=== PATIENT | male | born 1955 | race African-American/Black ===

== ENCOUNTER 2018-08-07 16:35 | Inpatient (IN) ==
[2018-08-07] MEDS ORDERED: LABETALOL IV ONE (17:00)
--- NOTE | 2018-08-07 17:26 | Diag Imaging Result Doc PS360 ---
EXAM: CHEST-PORTABLE 08/07/2018 HISTORY: htn TECHNIQUE: AP portable at 1718 COMMENT: There are no previous studies. There is no evidence of acute pulmonary disease. The heart size is at the upper limits of normal. IMPRESSION: Borderline cardiomegaly. Electronically signed by Markus Olivares 08/07/2018 5:23 PM
[2018-08-07 17:29] LABS: BASO# 0.05 X1000 (0.0-0.2); BASO% 0.6 % (0.0-0.8); EOS# 0.16 X1000 (0.0-0.7); EOS% 1.8 % (0.0-10.0); HEMATOCRIT 40.8 % (42.0-52.0); HEMOGLOBIN 13.7 g/dL (14.0-18.0); IMM GRAN# 0.01 X1000 (0.0-0.04); IMM GRAN% 0.1 % (0.0-0.5); LYMPH# 2.67 X1000 (1.2-3.4); LYMPH% 30.3 % (20.5-51.1); MCH 27.6 PG (27-31); MCHC 33.6 g/dL (33-37); MCV 82.1 FL (81-99); MONO# 0.62 X1000 (0.11-0.59); MPV 9.8 FL (7.4-10.4); NEUT# 5.29 X1000 (1.4-6.5); NEUT% 60.2 % (42.2-75.2); PLT 334 X1000 (130-400); RBC 4.97 XMIL (4.7-6.1); RDW 13.8 % (11.5-14.5)
[2018-08-07 17:45] LABS: INR 0.89; PROTIME 12.5 Seconds (11.0-16.0)
[2018-08-07 17:46] LABS: PTT 35.6 Seconds (22.3-41.8)
[2018-08-07 17:56] LABS: AGAP 13; ALBUMIN 3.7 g/dL (3.5-5.0); ALKALINE PHOSPHATASE 86 U/L (32-122); BUN 17 mg/dL (8-22); CALCIUM 9.4 mg/dL (8.8-10.2); CHLORIDE 102 mmol/L (98-107); COSMO 279; ESTIMATED GFR > 60; GLUCOSE 101 mg/dL (70-104); GOT 26 U/L (10-34); GPT 30 U/L (10-44); POTASSIUM 4.7 mmol/L (3.5-5.1); SODIUM 139 mmol/L (136-145); TCO2 25 mmol/L (25-35); TOTAL PROTEIN 7.4 g/dL (6.3-8.3)
[2018-08-07 18:02] LABS: CK PROFILE 415 U/L (24-204)
[2018-08-07] MEDS ORDERED: APRESOLINE IV ONE (18:15)
--- NOTE | 2018-08-07 18:16 | EKG Report ---
Test Performed on : 08/07/2018 5:43:19 PM Test Reason : htn Blood Pressure : / mmHG Vent. Rate : 073 BPM Atrial Rate : 073 BPM P-R Int : 190 ms QRS Dur : 102 ms QT Int : 422 ms P-R-T Axes : 012 -36 120 degrees QTc Int : 464 ms Normal sinus rhythm. Possible Left atrial enlargement Left axis deviation Left ventricular hypertrophy with repolarization abnormality Abnormal ECG No previous ECGs available Unconfirmed Result
[2018-08-07 18:18] LABS: CK INDEX 4.1 (0.0-2.5); CK-MB 17.06 ng/mL (0.0-5.0)
[2018-08-07] MEDS ORDERED: ASPIRIN PO ONE (18:23)
[2018-08-07] MEDS ORDERED: NITROGLYCERIN TOP ONE (18:27)
[2018-08-07] MEDS ORDERED: VASOTEC IV ONE (19:52)
[2018-08-07] MEDS ORDERED: ZOFRAN IV PRN (21:04)
[2018-08-07] MEDS ORDERED: TYLENOL PO PRN (21:04)
[2018-08-07 21:30] LABS: CK INDEX 4.2 (0.0-2.5); CK-MB 13.61 ng/mL (0.0-5.0)
[2018-08-07] MEDS: LABETALOL IV PRN (22:00)
[2018-08-07 23:53] LABS: CK INDEX 4.2 (0.0-2.5); CK-MB 13.23 ng/mL (0.0-5.0)
--- NOTE | 2018-08-07 23:56 | PROVIDER DOCUMENTATION ---
This chart was entered by Fadumo Sultana Scribe, acting as scribe for Rick Gibbs PA. HPI-General Adult - General Chief Complaint: B/P Problems Stated Complaint: ELEVATED BP Time Seen by Provider: 08/07/18 16:44 Source: patient Allergies/Adverse Reactions: Patient Allergies Allergy/AdvReac Type Severity Reaction Status Date / Time No Known Allergies Allergy Verified 08/12/17 17:14 Home Medications: Home Medication List Medication Instructions Recorded Confirmed Last Taken Type NK [No Home Medications] 08/12/17 08/12/17 Unknown History - History of Present Illness -Gen Adult Nature of Presenting Problems: 63 y/o male presents to ED with HTN. Pt reports he was sent to ED from physical therapy. Pt states he has had trouble maintaining his blood pressure for a long time. Pt reports associated lower extremity edema. Pt is alert and oriented. Location of Pain/Injury: reports: none Pain Radiation: reports: no radiation Quality of Pain: reports: none Severity: reports: mild Onset/Duration: reports: unsure Timing: reports: still present Context/Activities at Onset: reports: none Modifying Factors: improves with: nothing Associated Symptoms: reports: other (HTN, blurry vision, lower extremity edema) Similar Symptoms Previously?: Yes Recently seen or treated by another doctor?: No Review of Systems - Adult - REVIEW OF SYSTEMS - ADULT Constitutional: reports: other (HTN). denies: chills, fever Eyes: reports: blurred vision. denies: discharge Ears, Nose, Mouth & Throat: reports: no symptoms reported Cardiovascular: denies: chest pain, palpitations Respiratory: denies: cough, shortness of breath Gastrointestinal: denies: abdominal pain, diarrhea, nausea, vomiting Genitourinary: reports: no symptoms reported Musculoskeletal: reports: other (lower extremity edema). denies: back pain, joint pain Integumentary: reports: no symptoms reported Neurological: denies: dizziness/vertigo, seizure Psychiatric: reports: no symptoms reported Endocrine: reports: no symptoms reported Hematologic/Lymphatic: reports: no symptoms reported Allergic/Immunologic: reports: no symptoms reported All Other Systems: Reviewed and Negative Past History - Adult - PAST MEDICAL HISTORY-ADULT Review of Records: reports: Old Records Reviewed, Nursing Assessment Review, Medications Reviewed Major Childhood Illnesses: reports: denies history Cardiovascular: reports: HTN Respiratory: reports: denies history Gastrointestinal: reports: denies history Genitourinary: reports: denies history Musculoskeletal: reports: denies history Neurological: reports: denies history Psychiatric: reports: denies history Endocrine/Immune: reports: Diabetes - PRIOR SURGERIES/PROCEDURES Surgical/Procedure History: reports: none - IMMUNIZATION STATUS Childhood Immunizations: See Nurse Assessment Flu Vaccine: See Nurse Assessment - FAMILY HISTORY Family History: reviewed, not pertinent - SOCIAL HISTORY Smoking: quit greater than 1 year Substance Use: none/never Alcohol Use Frequency: never Living Situation: family Physical Exam-General - PHYSICAL EXAM-ADULT Initial Vital Signs Reviewed: Yes - CONSTITUTIONAL General Appearance: appears well, alert, no apparent distress - EYES Eyes: PERRL/EOMI, pink conjunctivae - HEAD, EARS, NOSE, MOUTH & THROAT HENMT: normocephalic/atraumatic, moist mucous membranes, normal ENT inspection - NECK Neck: non-tender, full range of motion - RESPIRATORY Respiratory: chest non-tender, lungs clear, normal breath sounds - CARDIOVASCULAR Cardiovascular: normal peripheral pulses, regular rate, rhythm - GASTROINTESTINAL (ABDOMEN) Abdominal Exam: normal bowel sounds, non tender, soft - MUSCULOSKELETAL Back Exam: normal inspection, no CVA tenderness Extremity: normal range of motion, non-tender, normal gait - SKIN Integumentary: normal color, warm/dry - NEUROLOGIC Neurologic: grossly normal - PSYCHIATRIC Psych/Mental Status: normal mood/affect, normal thought content, normal thought process Progress - PLAN OF CARE/RESULTS Progress/Plan/Lab Results: Vital Signs - 8 hr 08/07/18 16:40 Temperature 98.9 F Pulse Rate 78 Respiratory Rate 18 Blood Pressure 226/130 O2 Sat by Pulse Oximetry 95 Orders Category Date Time Status Cardiac Monitoring DIRECTED Care 08/07/18 16:45 Active Saline Loc NOW Care 08/07/18 16:45 Active CHEST-PORTABLE [RAD] Stat Exams 08/07/18 16:45 Ordered CBC WITH ELECTRONIC DIFF [HEME] Stat Lab 08/07/18 16:45 Uncollected CK PROFILE [SP CHEM] Stat Lab 08/07/18 16:45 Uncollected COMPREHENSIVE METABOLIC PANEL [CHEM] Stat Lab 08/07/18 16:45 Uncollected PRO B-NATRIURETIC PEPTIDE Stat Lab 08/07/18 16:45 Uncollected PROTIME WITH INR [COAG] Stat Lab 08/07/18 16:45 Uncollected PTT [COAG] Stat Lab 08/07/18 16:45 Uncollected TROPONIN T Stat Lab 08/07/18 16:45 Uncollected Labetalol Med 08/07/18 17:00 Once 20 mg IV NOW ONE CP/SOB/Palp >45 yrs of Age Stat Oth 08/07/18 16:45 Ordered EKG [EKG] Stat Ther 08/07/18 16:45 Ordered Laboratory Tests 08/07/18 08/07/18 08/07/18 17:10 17:10 17:10 WBC 8.80 RBC 4.97 Hgb 13.7 L Hct 40.8 L MCV 82.1 MCH 27.6 MCHC 33.6 RDW Std Deviation 13.8 Plt Count 334 MPV 9.8 Immature Gran % (Auto) 0.1 Neut % (Auto) 60.2 Lymph % (Auto) 30.3 Hale % (Auto) 7.0 Eos % (Auto) 1.8 Baso % (Auto) 0.6 Immature Gran # (Auto) 0.01 Neut # (Auto) 5.29 Lymph # (Auto) 2.67 Hale # (Auto) 0.62 H Eos # (Auto) 0.16 Baso # (Auto) 0.05 PT 12.5 INR 0.89 PTT (Actin FS) 35.6 Sodium 139 Potassium 4.7 Chloride 102 Carbon Dioxide 25 Anion Gap 13 BUN 17 Creatinine 1.0 Estimated GFR/1.73 m2 > 60 BUN/Creatinine Ratio 17 Glucose 101 Calculated Osmolality 279 Calcium 9.4 Total Bilirubin 0.20 AST 26 ALT 30 Alkaline Phosphatase 86 Troponin T Total Protein 7.4 Albumin 3.7 Globulin 4.0 Albumin/Globulin Ratio 1.0 08/07/18 17:10 WBC RBC Hgb Hct MCV MCH MCHC RDW Std Deviation Plt Count MPV Immature Gran % (Auto) Neut % (Auto) Lymph % (Auto) Hale % (Auto) Eos % (Auto) Baso % (Auto) Immature Gran # (Auto) Neut # (Auto) Lymph # (Auto) Hale # (Auto) Eos # (Auto) Baso # (Auto) PT INR PTT (Actin FS) Sodium Potassium Chloride Carbon Dioxide Anion Gap BUN Creatinine Estimated GFR/1.73 m2 BUN/Creatinine Ratio Glucose Calculated Osmolality Calcium Total Bilirubin AST ALT Alkaline Phosphatase Troponin T 0.131 H Total Protein Albumin Globulin Albumin/Globulin Ratio 2030: 4 attempts to reach cardiology over last two hours have been unsuccessful. Patient was seen and examined by Dr. Hernandez. 2100: Will admit here as ICU hold. Will transfer to DG when ICU bed opens. Result Diagrams: 08/07/18 17:10 08/07/18 17:10 - REASSESSMENT Reassessment #1 Time Reassessed: 19:00 Status: unchanged (no cp) Reassessment #2 Time Reassessed: 20:30 Status: unchanged (Feeling well. No cp.) - EKG 1 Time of EKG reading by physician:: 17:54 EKG Read and Signed by:: Corey Hernandez EKG Interpretation (*Must complete 3 of following elements*): Abnormal Rate: 73 Rhythm: nsr [place]: left QRS: LVH MO Interval: normal ST Wave: non-specific ST changes Prior EKG Comparison: no prior EKG 2 Time of EKG reading by physician:: 20:41 EKG Read and Signed by:: Eduar Guaman EKG Interpretation (*Must complete 3 of following elements*): Abnormal Rate: 75 Rhythm: nsr [place]: left QRS: Q Waves present MO Interval: normal ST Wave: non-specific ST changes Prior EKG Comparison: unchanged from prior - XRAY 1 XRAY Study: Chest Impression: Abnormal (COMMENT: There are no previous studies. There is no evidence of acute pulmonary disease. The heart size is at the upper limits of normal. IMPRESSION: Borderline cardiomegaly. Electronically signed by Markus Olivares 08/07/2018 5:23 PM) - CONSULTS/PCP/HOSPITALIST Notification #1 *Consult/PCP/Hospitalist*: Dr. Suero Time Discussed: 18:31 Consult Disposition: other (call cards) #2 Consult: Dr. Apodaca Time Discussed: 20:39 Consult Disposition: Admit (admit to DG. Esmolol gtt if needed.) #3 Consult: Hospitalist DG Time Discussed: 20:57 Consult Disposition: Admit (No beds in ICU. Hold here. Call hospitalist here. 2103: Dr. Shabazz on the phone. Will hold here in ICU. Labetolol 10 iv push q 30.) Departure - Departure Date of Disposition Decision: 08/07/18 Time of Disposition Decision: 21:04 DIAGNOSIS: Hypertensive emergency, NSTEMI (non-ST elevated myocardial infarction) Disposition: ADMITTED INPATIENT 09 Certified Medical Emergency: Emergent Condition: Fair Referrals and Follow-Ups: Karolyn Rod [Primary Care Provider] - - Critical Care Note This patient required my direct & personal management of CC.: Yes Total Time (mins): 55 Critical Care Statement: This patient required my direct personal management to treat or rule out processes, the absence of which, could potentiallly result in sudden, clinically significant life or limb threatening deterioration. Attestation - Physician/ DONTAE Attestation Patient care was provided by Advanced Practice Provider:: Yes Advanced Practice Provider:: Rick Gibbs Advanced Practice Provider documentation review:: The Mid-level provider documentation, treatment plan and medical decision making was reviewed by the physician who agrees with all treatment and medical decision making by the MLP. The physician spent face to face time with patient:: Yes Advanced Practice Provider documentation review:: Supervising physician onsite and consulted in the evaluation and care of this patient. The physician did have a face to face encounter with the patient. This chart was documented by the indicated scribe, (Fadumo Sultana Scribe) and accurately reflects the services I performed and decisions made by me, Rick Gibbs, PA, as attested by the provider's signature.
[2018-08-08 07:44] LABS: CK INDEX 4.1 (0.0-2.5); CK-MB 8.92 ng/mL (0.0-5.0)
[2018-08-08] MEDS: NITROGLYCERIN TOP SCH ×3 (07:54→18:28)
[2018-08-08] MEDS ORDERED: LOPRESSOR PO SCH ×2 (09:00→21:00)
[2018-08-08 09:25] LABS: HEMATOCRIT 36.6 % (42.0-52.0); HEMOGLOBIN 12.5 g/dL (14.0-18.0); MCHC 34.2 g/dL (33-37); MCV 82.1 FL (81-99); MPV 9.2 FL (7.4-10.4); RBC 4.46 XMIL (4.7-6.1); RDW 13.8 % (11.5-14.5); WBC 8.27 X1000 (4.8-10.8)
[2018-08-08 09:42] LABS: AGAP 10; ALBUMIN 3.2 g/dL (3.5-5.0); ALKALINE PHOSPHATASE 72 U/L (32-122); BUN 18 mg/dL (8-22); CALCIUM 8.9 mg/dL (8.8-10.2); CHLORIDE 101 mmol/L (98-107); COSMO 274; ESTIMATED GFR > 60; GLUCOSE 134 mg/dL (70-104); GOT 18 U/L (10-34); GPT 25 U/L (10-44); POTASSIUM 4.5 mmol/L (3.5-5.1); SODIUM 135 mmol/L (136-145); TCO2 24 mmol/L (25-35); TOTAL PROTEIN 6.7 g/dL (6.3-8.3)
[2018-08-08 10:00] LABS: UR AMPHETAMINES QUAL NONE DETECTED (NONE DETECT); UR BARBITUATES QUAL NONE DETECTED (NONE DETECT); UR BENZODIAZEPIN QUAL NONE DETECTED (NONE DETECT); UR CANNABINOIDS QUAL NONE DETECTED (NONE DETECT); UR COCAINE QUAL NONE DETECTED (NONE DETECT); UR METHADONE QUAL NONE DETECTED (NONE DETECT); UR METHAMPHETAMINE QUAL NONE DETECTED (NONE DETECT); UR OPIATES QUAL NONE DETECTED (NONE DETECT); UR OXYCODONE QUAL NONE DETECTED (NONE DETECT); UR PCP QUAL NONE DETECTED (NONE DETECT); UR PROPOXYPHENE QUAL NONE DETECTED (NONE DETECT); UR TCA QUAL NONE DETECTED (NONE DETECT)
[2018-08-08] MEDS ORDERED: ASPIRIN PO SCH (10:00)
[2018-08-08] MEDS ORDERED: LOVENOX SUBQ SCH (10:00)
[2018-08-08] MEDS ORDERED: PRINIVIL PO SCH (10:00)
[2018-08-08] MEDS ORDERED: ASPIRIN ONE (10:05)
[2018-08-08] MEDS ORDERED: PRINIVIL ONE (10:05)
--- NOTE | 2018-08-08 10:55 | HISTORY AND PHYSICAL ---
PRIMARY CARE PHYSICIAN: Karolyn Ware. CHIEF COMPLAINT: Elevated blood pressure. Sent after he had an elevated blood pressure at Physical therapy yesterday. HISTORY OF PRESENTING ILLNESS: This is a 63-year-old, male, who presents to [facility] ER after he had been at his physical therapy appointment outpatient and they took his blood pressure and said it was extremely elevated so he was sent to the emergency room for evaluation and treatment. When he arrived, his blood pressure was 226/130. He stated that he did not have any symptoms. Denied any blurred vision, dizziness, any chest pain, shortness of breath. Stated he was feeling fine. His laboratory data showed a creatinine kinase of 415, CK-MB of 17.06 with a troponin of 0.131. We continued to trend those and they stayed positive with the last one showing a troponin of 0.097. His EKG showed a non-STEMI. So, he will be transferred to the [facility] for further evaluation and treatment with cardiology consultation. PAST MEDICAL HISTORY: Hypertension. PAST SURGICAL HISTORY: None. FAMILY HISTORY: Heart disease. SOCIAL HISTORY: Currently lives with his family. Denies any tobacco, alcohol or illicit drug use. ALLERGIES: He has no known drug allergies. HOME MEDICATIONS: We will need to obtain a current list and restart those as appropriate. I will place an order for nursing to update and confirm, but he does state that he takes metoprolol and lisinopril, but does not know the dosages at this time. LABORATORY DATA: Showed a white blood cell count of 8.80, hemoglobin 13.7, hematocrit 40.8, platelets 334. PT and INR of 12.5 and 0.89. Sodium of 139, potassium 4.7, chloride 102, CO2 of 25, BUN of 17, creatinine 1, glucose 101. Initial cardiac enzymes showed a creatinine kinase of 415. CK-MB of 17.06 with a troponin of 0.131. His repeats have trended down slightly, but are all still positive at this time. Chest x-ray showed borderline cardiomegaly. EKG showed normal sinus rhythm at 73 with a non-STEMI. REVIEW OF SYSTEMS: He denies fever, chills, blurred vision, dizziness. Denies chest pain, coughing, shortness of breath. Denies abdominal pain, constipation, diarrhea, burning or hurting with urination. PHYSICAL EXAMINATION: VITAL SIGNS: On arrival, he had a temperature of 98.9, pulse 78, respirations 18, blood pressure was 226/130. Saturating 95% on room air. He had multiple drug interventions for his blood pressure. In the emergency room, currently blood pressure is 167/96. GENERAL: This is a 63-year-old, male, who is sitting up in the bed and answers questions appropriately. Continues to deny any blurred vision, dizziness, chest pain, headache. At this time states, "I'm feeling fine this morning." HEENT: Normocephalic, atraumatic. Normal ENT inspection. Oropharynx and nares are clear. Eyes: Pupils are equal, round, reactive to light and accommodation. Extraocular movements are intact. NECK: Normal inspection. Normal range of motion. LUNGS: Clear to auscultation bilaterally with equal lung expansion and chest wall movement. HEART: With regular rate and rhythm. No murmurs, rubs, or gallops. ABDOMEN: Soft, nontender, nondistended. Bowel sounds are present x4 quadrants. MUSCULOSKELETAL: He has 5/5 strength x4 extremities. NEUROLOGICAL: The cranial nerves 2-12 appear grossly intact. ASSESSMENT: 1. Non ST-elevation myocardial infarction. 2. Accelerated hypertension, uncontrolled. 3. Morbid obesity with BMI of 39.9 kg/M sq. PLAN: He will be transferred to the [facility]. We will place him on telemetry, healthy heart diet. We will consult Cardiology. He is on labetalol 10 mg IV q.1 hour p.r.n. for blood pressure greater than 180/90. Do not give if heart rate less than 70. He has nitroglycerin 1 inch topically q.6. Metoprolol 25 mg p.o. b.i.d., Zofran 4 mg IV q.4 p.r.n. We will recheck a CMP, magnesium level this morning. Urine drug screen is pending and will also check a TSH. Dictated by CYDNEY Medina for Bryan Shabazz MD cc: CYDNEY Medina MD [facility]
--- NOTE | 2018-08-08 13:17 | HISTORY AND PHYSICAL ---
ADDENDUM: Patient seen and examined by myself. Full note dictated and discussed with nurse practitioner. Patient states he was sent to the emergency department while he was at physical therapy. He has been having pain in his arms and legs due to spinal stenosis, notes they go numb at times. He has been undergoing physical therapy. Upon arrival to physical therapy they checked his blood pressure and noted his blood pressure was markedly elevated. Therefore, they sent him to the ER where blood pressures were certainly high. He was given IV labetalol. His enzymes were actually elevated as well. He denies any chest pain or palpitations. States he has never had a stress test or a heart catheterization in the past. He states currently he is still not having any chest pains or palpitations. PLAN: We will admit him to the hospital to rule out NM and will follow. We will consult Cardiology, place him on beta-kai, add his home MYKEL inhibitor back, place him on Lovenox. Further orders as needed. cc: Bryan Shabazz MD
[2018-08-08] MEDS ORDERED: LABETALOL ONE (13:39)
[2018-08-08] MEDS: LABETALOL IV PRN ×4 (13:44→22:05)
[2018-08-08] MEDS ORDERED: TYLENOL PO PRN (14:19)
[2018-08-08] MEDS ORDERED: ZOFRAN IV PRN (14:19)
--- NOTE | 2018-08-08 19:06 | EKG Report ---
Test Performed on : 08/07/2018 8:40:41 PM Test Reason : ER Blood Pressure : / mmHG Vent. Rate : 075 BPM Atrial Rate : 075 BPM P-R Int : 192 ms QRS Dur : 116 ms QT Int : 416 ms P-R-T Axes : 041 -31 116 degrees QTc Int : 464 ms Normal sinus rhythm. Left axis deviation Left ventricular hypertrophy with QRS widening and repolarization abnormality Abnormal ECG When compared with ECG of 07-AUG-2018 17:43, (Unconfirmed) No significant change was found Unconfirmed Result
[2018-08-08] MEDS: PRINIVIL PO SCH (20:26)
[2018-08-08] MEDS: LOVENOX SUBQ SCH (22:08)
--- NOTE | 2018-08-08 23:23 | CONSULTATION ---
DATE OF CONSULTATION: 08/08/2018 IMPRESSION: 1. Hypertensive urgency. 2. Nonspecific mild elevation in troponin. I suspect this is more related to the hypertensive urgency. Values are not consistent with non-ST elevation myocardial infarction at this point. 3. Longstanding severe hypertension. 4. Obesity. RECOMMENDATIONS: 1. Agree with plan to utilize intravenous labetalol to control blood pressure acutely. 2. Continue beta-kai but favor switching to carvedilol. 3. Continue lisinopril. 4. Consider addition of calcium channel antagonist if needed. 5. Echocardiography. 6. Once the patient's blood pressure controlled will consider screening for coronary disease. HISTORY: This 63-year-old -[place] male with past history of longstanding hypertension was admitted for further management of hypertensive urgency and very mild elevation in troponin. He has had somewhat difficult to control blood pressure last 5 years but has had hypertension for more than 20 years. He has been having some elevated blood pressure of late and saw his primary care provider a month ago. Blood pressure was elevated and some adjustments were made to his antihypertensive regimen. Listed medications is still not available. He has some degenerative disease of his back and spine and presented to physical therapy. His blood pressure was noted to be severely elevated and he was referred to the emergency room for further evaluation and treatment. He has not had any chest discomfort, dizziness, lightheadedness nor shortness of breath. He relates he has been feeling fine. His blood pressure was significantly elevated in the emergency room. He also had a very mild elevation in troponin 0.131. He was subsequent treated acutely with intravenous labetalol times several doses as well as topical nitrates. His blood pressure has come down but has most recently trended back upwards. He continues asymptomatic from a cardiovascular standpoint. There is no history of chest pain. He is unaware of any history of coronary disease. PAST MEDICAL HISTORY: 1. Longstanding hypertension. 2. Obesity. PAST SURGICAL HISTORY: None. ALLERGIES: Has no known drug allergies. MEDICATIONS: Current list of medications. SOCIAL HISTORY: He lives with family. He does not smoke or use alcohol. Reports compliance with sodium restriction. FAMILY HISTORY: Positive for hypertension. REVIEW OF SYSTEMS: Pulmonary: Negative. Gastrointestinal: Negative. Constitutional: Negative. Remainder review of systems negative/noncontributory with 14 total systems reviewed. PHYSICAL EXAMINATION: This is a obese, older middle-aged -[place] male in no distress.Vital signs: Blood pressure 220/90, heart rate 79, oxygen saturation 96% on room air. HEENT: Extraocular movements intact. Mucous membranes moist. Neck: Supple without jugular venous distention. There are no carotid bruits. Chest: Clear to auscultation. Cardiac Exam: Reveals a regular rate and rhythm without appreciable murmur or gallop. Abdomen: Soft, nontender. No abdominal bruits. Extremities: Without edema. Neurologic: Reveals him to be alert and fully oriented. Speech is fluent. He moves all 4 extremities equally well. Skin: Warm, dry. Psychiatric: Reveals mood to be appropriate. DATA: A 12 lead EKG demonstrates normal sinus rhythm, left axis deviation and left ventricular hypertrophy with QRS widening and repolarization abnormality. LABORATORY DATA: Includes a white blood cell count 8.27, hematocrit 36.6, hemoglobin 12.5, platelet count 308,000, sodium 135, potassium 4.5, chloride 101, carbon dioxide 24, BUN 18, creatinine 1.0. Glucose 134, magnesium 2.0, AST 18, ALT 25. CPK initially 312, followup CPK 215, CPK/MB initially 13.23, followup CPK/MB 8.92, CPK/MB index 4.2, followup CPK/MB index 4.1, initial troponin T 0.113, followup troponin T 0.091 and 0.097 respectively. Chest x-ray demonstrates cardiomegaly with left ventricular prominence but no acute infiltrates. cc: Carlos Grewal MD
[2018-08-08] MEDS: CARDENE 20 MG/NS 20 MG/200 ML PIGGYBACK IV SCH (23:53)
[2018-08-09] MEDS: COREG PO SCH ×3 (00:29→21:10)
[2018-08-09] MEDS: NITROGLYCERIN TOP SCH ×3 (00:29→13:15)
[2018-08-09] MEDS: CARDENE 20 MG/NS 20 MG/200 ML PIGGYBACK IV SCH ×3 (03:16→11:43)
[2018-08-09 05:48] LABS: HEMOGLOBIN A1C 5.9 % (4.8-6.0)
[2018-08-09 05:53] LABS: AGAP 12; ALB/GLOB RATIO 0.9; ALKALINE PHOSPHATASE 64 U/L (32-122); BUN 16 mg/dL (8-22); CALCIUM 8.6 mg/dL (8.8-10.2); CHLORIDE 100 mmol/L (98-107); COSMO 272; CREATININE 0.9 mg/dL (0.7-1.2); ESTIMATED GFR > 60; GLUCOSE 144 mg/dL (70-104); GOT 19 U/L (10-34); GPT 21 U/L (10-44); POTASSIUM 4.4 mmol/L (3.5-5.1); SODIUM 134 mmol/L (136-145); TCO2 22 mmol/L (25-35); TOTAL BILIRUBIN 0.41 mg/dL (0.20-1.00); TOTAL PROTEIN 6.4 g/dL (6.3-8.3)
[2018-08-09 06:06] LABS: HEMATOCRIT 36.7 % (42.0-52.0); HEMOGLOBIN 12.4 g/dL (14.0-18.0); MCH 27.6 PG (27-31); MCHC 33.8 g/dL (33-37); MCV 81.7 FL (81-99); MPV 9.9 FL (7.4-10.4); RBC 4.49 XMIL (4.7-6.1); RDW 13.7 % (11.5-14.5); WBC 8.36 X1000 (4.8-10.8)
[2018-08-09] MEDS: PRINIVIL PO SCH ×2 (09:24→21:10)
[2018-08-09] MEDS: LOVENOX SUBQ SCH ×2 (09:24→21:10)
[2018-08-09] MEDS: ASPIRIN PO SCH (09:24)
--- NOTE | 2018-08-09 15:37 | PROGRESS NOTE ---
DATE: 08/09/2018 INTERVAL HISTORY: The patient remains on Cardene for hypertensive urgency versus emergency. Denied dyspnea, chest pain, fever, or chills. No new complaints. No other acute events overnight. REVIEW OF SYSTEMS: Twelve point review of systems negative except as per interval history. LABORATORY: WBC 8.3, hemoglobin 12.4, hematocrit 36.7, and platelets 271,000. Sodium 134, potassium 4.4, BUN 16, creatinine 0.9, glucose 144. A1c 5.9, calcium 8.6, and albumin 3. UDS negative. Troponin's initial 0.13, next 0.097, and next 0.091. VITALS: T-max 98.9 degrees, pulse 68, respirations 19, blood pressure 148/80 on Cardene drip. Her O2 saturation 94% on room air. PHYSICAL EXAMINATION: General: No acute distress. Vitals: As above. HEENT: Normocephalic, atraumatic. Moist mucous membranes. No cervical adenopathy. Cardiovascular: Regular rate and rhythm. No murmurs, rubs, or gallops. Pulmonary: Clear to auscultation bilaterally. No wheezing, rales, or rhonchi. Abdomen: Soft, nontender, and nondistended. Bowel sounds positive. Extremities: Peripheral pulses decreased but intact. No clubbing, cyanosis, or edema. Neurologic: Cranial nerves 2-12 grossly intact. No focal or motor sensory deficits. Psychiatric: Normal mood and affect. Awake, alert, and oriented x3. Skin: No new rashes or lesions noted. ASSESSMENT AND PLAN: 1. Hypertensive urgency versus emergency. The patient admitted with profoundly elevated blood pressure, systolic greater than 220 and had elevated troponin. He was placed on Cardene drip and troponin subsequently trended down. Good control with Cardene, but unable to wean off so far. The patient has been started on Coreg and lisinopril. We will add p.o. hydralazine and attempt to wean him off of the Cardene. 2. Elevated troponin, likely demand ischemia related to markedly elevated blood pressure versus NSTEMI. Cardiology following and favors demand ischemia. Monitor on telemetry. 3. Morbid obesity. Advised on diet and exercise. 4. Hyponatremia, mild, asymptomatic. Monitor. 5. Anemia, mild, asymptomatic. Monitor blood counts. 6. Deep vein thrombosis prophylaxis. Lovenox.
[2018-08-09] MEDS: APRESOLINE PO SCH (16:41)
[2018-08-09] MEDS: NORVASC PO SCH (18:49)
--- NOTE | 2018-08-09 19:53 | PROGRESS NOTE ---
DATE: 08/09/2018 SUBJECTIVE: Patient continues asymptomatic from a cardiovascular standpoint. OBJECTIVE: Blood pressure 162/89, heart rate 71 and regular, oxygen saturation 95% on room air. There is no significant jugular venous distention.Chest: Clear to auscultation. Cardiac Exam: Reveals a regular rate and rhythm without appreciable murmur or gallop. Extremities: Without edema. LABORATORY DATA: Includes a white blood cell count 8.36, hematocrit 36.7, hemoglobin 12.4, platelet count 271,000. Sodium 134, potassium 4.4, chloride 100, carbon dioxide 22, BUN 16, creatinine 0.9, glucose 147. IMPRESSION: 1. Hypertensive urgency. 2. Nonspecific mild elevation in troponin. 3. Longstanding severe hypertension. 4. Obesity. RECOMMENDATIONS: 1. Add oral calcium channel antagonist. 2. Continue carvedilol and lisinopril. 3. Consider switching to ARB. 4. Follow up echocardiography result. cc: Carlos Grewal MD
[2018-08-10] MEDS: LABETALOL IV PRN ×4 (06:38→20:43)
[2018-08-10] MEDS: NORVASC PO SCH (08:05)
[2018-08-10] MEDS: COREG PO SCH ×2 (08:05→20:43)
[2018-08-10] MEDS: PRINIVIL PO SCH (08:05)
[2018-08-10] MEDS: APRESOLINE PO SCH ×2 (08:05→13:04)
[2018-08-10] MEDS: ASPIRIN PO SCH (08:05)
[2018-08-10] MEDS: LOVENOX SUBQ SCH ×2 (09:20→21:16)
--- NOTE | 2018-08-10 14:33 | ECHO REPORT ---
ORDER DATE: 08/09/2018 INDICATION: Hypertension, morbid obesity. Elevated enzymes. FINDINGS: 1. The right atrium is mildly enlarged at 4.7 cm. 2. Mild tricuspid regurgitation. RV systolic pressure of 36. 3. Normal RV size and systolic function. 4. No significant pulmonic insufficiency. 5. Severe left atrial enlargement with a volume index of 59. 6. No mitral valve prolapse. Mild mitral annular calcification is noted. Trace mitral regurgitation. No evidence of stenosis. 7. Normal LV size, end-diastolic dimension of 4.7. Moderate left ventricular hypertrophy with posterior and interventricular septal wall thickness of 1.6 cm each. Calculated ejection fraction of 62% normal. No obvious wall motion abnormalities are identified. 8. Aortic valve opens well. No evidence of stenosis or insufficiency. 9. Aorta appears normal in visualized segments. 10. No pericardial effusion seen. cc: MD Carlos Swann MD
[2018-08-10] MEDS ORDERED: COREG PO ONE (14:58)
--- NOTE | 2018-08-10 15:22 | PROGRESS NOTE ---
DATE: 08/10/2018 SUBJECTIVE: Patient continues without chest discomfort or shortness of breath. OBJECTIVE: Vital Signs: Blood pressure 178/95, heart rate 73, oxygen saturation 99% on room air. Neck: There is no significant jugular venous distention. Chest: Clear to auscultation bilaterally. Cardiac: Reveals a regular rate and rhythm without appreciable murmur or gallop. There is also peripheral edema. IMPRESSION: 1. Hypertensive urgency. 2. Nonspecific mild elevation in troponin probably related to hypertensive urgency. 3. Longstanding severe hypertension. 4. Obesity. RECOMMENDATIONS: 1. Gently increase carvedilol. 2. Add low-dose thiazide. 3. Switch to ARB, losartan 100 mg daily. cc: Carlos Grewal MD
[2018-08-10] MEDS: HYDROCHLOROTHIAZIDE PO SCH (15:38)
--- NOTE | 2018-08-10 15:52 | PROGRESS NOTE ---
DATE: 08/10/2018 SUBJECTIVE: Patient resting in bed. OBJECTIVE: Vital Signs: Temperature is 98.6, pulse 70, respirations 20, blood pressure is 178/95, oxygen 99%. HEENT: Atraumatic, normocephalic. Cardiovascular: S1, S2. Respiratory: Has evidence of good air entry bilaterally. Abdomen: Soft, nontender. No masses felt. Extremities: No evidence of edema. Central Nervous System: No obvious focal deficits noted. LABORATORY: None, except blood sugar of 200. ASSESSMENT AND PLAN: 1. Hypertensive urgency. Optimize blood pressure control using parenteral as well as oral agents. 2. Elevated troponin probably secondary to demand ischemia. Cardiology following. 3. Obesity, aware. 4. DVT prophylaxis. Lovenox. 5. Disposition: Patient transferred to the step-down unit. cc: Jose Antonio Guo MD
[2018-08-10] MEDS: COZAAR PO SCH (20:43)
[2018-08-11] MEDS: LABETALOL IV PRN ×2 (05:38→21:23)
[2018-08-11] MEDS: SYNTHROID PO SCH ×2 (05:38→06:01)
[2018-08-11 06:06] LABS: AGAP 10; BUN 19 mg/dL (8-22); CALCIUM 9.1 mg/dL (8.8-10.2); CHLORIDE 99 mmol/L (98-107); COSMO 273; CREATININE 0.9 mg/dL (0.7-1.2); ESTIMATED GFR > 60; GLUCOSE 141 mg/dL (70-104); SODIUM 134 mmol/L (136-145); TCO2 25 mmol/L (25-35)
[2018-08-11 06:42] LABS: HEMATOCRIT 35.1 % (42.0-52.0); MCH 28.1 PG (27-31); MCHC 34.2 g/dL (33-37); MCV 82.2 FL (81-99); MPV 10.1 FL (7.4-10.4); RBC 4.27 XMIL (4.7-6.1); RDW 13.6 % (11.5-14.5); WBC 6.95 X1000 (4.8-10.8)
[2018-08-11] MEDS: ASPIRIN PO SCH (08:00)
[2018-08-11] MEDS: NORVASC PO SCH (08:00)
[2018-08-11] MEDS: COREG PO SCH ×2 (08:00→21:22)
[2018-08-11] MEDS: COZAAR PO SCH ×2 (08:00→21:23)
[2018-08-11] MEDS: HYDROCHLOROTHIAZIDE PO SCH ×2 (08:00→10:03)
[2018-08-11] MEDS ORDERED: HYDROCHLOROTHIAZIDE PO ONE (08:46)
--- NOTE | 2018-08-11 09:09 | PROGRESS NOTE ---
DATE: 08/11/2018 SUBJECTIVE: The patient continues asymptomatic from a cardiovascular standpoint. He remains hypertensive. OBJECTIVE: Vital Signs: Blood pressure 191/103, heart rate 75, oxygen saturation 96% on room air. There is no significant jugular venous distention. Chest: Clear to auscultation. Cardiac Exam: Reveals a regular rate and rhythm without appreciable murmur, rub, or gallop. Extremities: There is no evidence of peripheral edema. LABORATORY DATA: Includes a white blood cell count of 6.95, hematocrit 35.1, hemoglobin 12.0, platelet count 277,000. Sodium 134, potassium 4.0, chloride 99, carbon dioxide 25, BUN 19, creatinine 0.9, glucose 141. IMPRESSION: 1. Hypertensive urgency. Blood pressure is still elevated. 2. Nonspecific mild elevation in troponin, probably related to hypertensive urgency. 3. Longstanding severe hypertension. 4. Obesity. RECOMMENDATIONS: 1. Increase Dyazide. 2. Arrange for screening Lexiscan sestamibi study today. He has not yet eaten breakfast. cc: Carlos Grewal MD
[2018-08-11] MEDS: LOVENOX SUBQ SCH ×2 (10:03→21:24)
[2018-08-11] MEDS ORDERED: LEXISCAN ONE (13:22)
--- NOTE | 2018-08-11 19:01 | PROGRESS NOTE ---
DATE: 08/11/2018 SUBJECTIVE: The patient is resting comfortably in bed, he has no complaints. His blood pressures are still elevated. OBJECTIVE: Vital Signs: Temperature 98.3 degrees, blood pressure 176/85, heart rate 70, respirations 20, O2 saturation 100% on room air. General: This is a morbidly obese male lying in bed in no acute distress. Heart: S1, S2 normal. Regular rate and rhythm. Lungs: Equal air entry bilaterally. No crackles, no rales. Abdomen: Positive bowel sounds. Soft, nontender, nondistended. Extremities: No edema, no cyanosis. Neuro: The patient is alert and oriented x3. LABS: Reviewed. ASSESSMENT AND PLAN: 1. Accelerated hypertension. Continue with medication titration as directed by the sock knitter. 2. Elevated troponin. Cardiology following. 3. Morbid obesity. The patient has been counseled about weight loss and proper diet. 4. Hypothyroidism. Continue on Synthroid. 5. Deep vein thrombosis prophylaxis. The patient is currently on full dose Lovenox. cc: Rema Garcia MD
--- NOTE | 2018-08-11 20:21 | Diag Imaging Result Document ---
PROCEDURE NAME: MYOCARDIAL PERF SCAN, STR/REST - 08/11/2018 SUMMARY: The patient was administered 15.3 mCi of technetium-99m sestamibi after which resting cardiac images were obtained. The patient was subsequently administered Lexiscan 0.4 mg intravenously after which the heart rate went from 69 beats per minute to 78 beats per minute. The blood pressure went from 192/113 to 170/98. With Lexiscan the patient denied chest discomfort. Following the administration of Lexiscan, the patient was administered 45.5 mCi of technetium 99-m sestamibi after which gated stress cardiac images were obtained. Baseline ECG demonstrates sinus rhythm and left hypertrophy. ST and T-wave abnormality in lateral precordial leads and lateral leads probably due to repolarization abnormality. With Lexiscan, baseline ST and T-wave abnormality did not change significantly. SPECT images were reconstructed in the short, horizontal, vertical long axis. Review of these images demonstrated mild to moderate diminished activity in the inferolateral region left ventricle on stress images which appear similar on resting images. There is also increased gut uptake of radiopharmaceutical beneath the heart more on stress images than rest images influencing imaging. There is no convincing scintigraphic evidence of inducible myocardial ischemia. SPECT images suggest left ventricular enlargement. Gated images demonstrated calculated left ejection fraction 39% the setting of global hypokinesis. CONCLUSIONS: 1. Adequate response to Lexiscan. 2. Clinically negative for chest pain. 3. Electrocardiographically baseline ST and T-wave abnormality did not change significantly with Lexiscan. 4. Lexiscan sestamibi images demonstrate fixed mild to moderate diminished activity in the inferolateral region left ventricle probably artifactual in origin. There is no convincing scintigraphic evidence of inducible myocardial ischemia. Left ventricular enlargement with calculated left ejection fraction 39% demonstrated. Clinical correlation recommended. cc: Carlos Grewal MD
[2018-08-12 05:33] LABS: AGAP 7; BUN 19 mg/dL (8-22); CALCIUM 9.1 mg/dL (8.8-10.2); CHLORIDE 100 mmol/L (98-107); COSMO 270; CREATININE 0.9 mg/dL (0.7-1.2); ESTIMATED GFR > 60; GLUCOSE 148 mg/dL (70-104); MAGNESIUM 2.1 mg/dL (1.5-2.7); POTASSIUM 4.2 mmol/L (3.5-5.1); SODIUM 132 mmol/L (136-145); TCO2 25 mmol/L (25-35)
[2018-08-12] MEDS: SYNTHROID PO SCH (06:12)
[2018-08-12] MEDS: ASPIRIN PO SCH (09:05)
[2018-08-12] MEDS: COREG PO SCH ×2 (09:05→21:12)
[2018-08-12] MEDS: NORVASC PO SCH (09:06)
[2018-08-12] MEDS: HYDROCHLOROTHIAZIDE PO SCH (09:06)
[2018-08-12] MEDS: COZAAR PO SCH ×2 (09:06→21:12)
[2018-08-12] MEDS: LABETALOL IV PRN (09:06)
[2018-08-12] MEDS: LOVENOX SUBQ SCH (09:06)
[2018-08-12] MEDS ORDERED: NORVASC PO ONE (14:34)
--- NOTE | 2018-08-12 20:28 | PROGRESS NOTE ---
DATE: 08/12/2018 SUBJECTIVE: The patient is resting comfortably in bed. He has no complaints. His blood pressure is still elevated. OBJECTIVE: Vital Signs: Temperature 98.6 degrees, blood pressure 192/102, heart rate 86, respirations 21, O2 saturation 100% on room air. General: This is a chronically ill-appearing male lying in bed, in no acute distress. Heart: S1, S2. Normal. Lungs: Clear to auscultation bilaterally. Abdomen: Positive bowel sounds. Soft, nontender, nondistended. Extremities: No edema. No cyanosis. Neurologic: The patient is alert and oriented x3. LABS: Sodium 132, potassium 4.2, chloride 100, CO2 25, BUN 19, creatinine 0.9, glucose 148. ASSESSMENT AND PLAN: 1. Uncontrolled hypertension. Continue with medication and try titration as per the speech and hearing clinic director. 2. Elevated troponin. Stable. Continue to try and control the blood pressure. 3. Morbid obesity. Aware. The patient has been counseled about weight loss and proper diet. 4. Hypothyroidism. Continue on Synthroid. 5. Deep vein thrombosis prophylaxis. Continue on Lovenox. cc: Rema Garcia MD
[2018-08-12 22:40] LABS: URINE SOURCE CLEAN CATCH
[2018-08-12 23:20] LABS: BILIRUBIN URINE NEGATIVE (NEGATIVE); BLOOD URINE TRACE (NEGATIVE); COLOR YELLOW; GLUCOSE URINE 70 mg/dL (NEGATIVE); KETONE URINE NEGATIVE (NEGATIVE); LEUKOCYTES URINE NEGATIVE (NEGATIVE); NITRITE URINE NEGATIVE (NEGATIVE); PROTEIN URINE 200 mg/dL (NEGATIVE); SP GRAVITY URINE 1.013; TURBIDITY URINE CLEAR (CLEAR); UR EPITHELIAL CELLS <10 /HPF (<10); URINE BACTERIA NEGATIVE /HPF; URINE RBC <10 /HPF (<10); URINE WBC <10 /HPF (<10); UROBILINOGEN URINE 2 mg/dL (NORMAL)
[2018-08-13 05:38] LABS: AGAP 11; BUN 20 mg/dL (8-22); CALCIUM 9.3 mg/dL (8.8-10.2); CHLORIDE 100 mmol/L (98-107); COSMO 275; CREATININE 0.9 mg/dL (0.7-1.2); ESTIMATED GFR > 60; GLUCOSE 131 mg/dL (70-104); POTASSIUM 4.2 mmol/L (3.5-5.1); SODIUM 135 mmol/L (136-145); TCO2 24 mmol/L (25-35)
[2018-08-13] MEDS: SYNTHROID PO SCH (06:03)
[2018-08-13] MEDS ORDERED: NORVASC PO SCH (09:00)
[2018-08-13] MEDS ORDERED: LOVENOX SUBQ SCH (09:00)
[2018-08-13] MEDS ORDERED: ASPIRIN PO SCH (09:00)
[2018-08-13] MEDS: COZAAR PO SCH (09:33)
[2018-08-13] MEDS: HYDROCHLOROTHIAZIDE PO SCH (09:33)
[2018-08-13] MEDS: COREG PO SCH (09:33)
--- NOTE | 2018-08-13 11:28 | Diag Imaging Result Doc PS360 ---
EXAM: US DUPLEX RENAL ARTY/VEIN LMTD 08/13/2018 HISTORY: uncontrolled hypertension TECHNIQUE: Renal ultrasound with renal arterial Doppler COMMENT: The right kidney measures 14.7 x 6.3 x 5.9 cm. The renal artery ratio is 1.4 and the resistive index is 0.69. This is within the normal range. The left kidney is 15.9 x 6.6 x 7.1 cm with a resistive index of 0.72 and a renal artery ratio of 1.2 which are also within the normal range. There is no evidence of hydronephrosis. There is a 4.4 x 5.2 x 4.2 cm cyst in the left kidney superiorly. IMPRESSION: No evidence of renal artery stenosis. Bilaterally enlarged kidneys. Electronically signed by Markus Olivares 08/13/2018 11:26 AM
[2018-08-13 16:14] VITALS: BP 184/100
--- NOTE | 2018-08-13 20:22 | PROGRESS NOTE ---
DATE: 08/13/2018 CARDIOLOGY FOLLOWUP NOTE: SUBJECTIVE: Patient continues asymptomatic from a cardiovascular standpoint. OBJECTIVE: Vital Signs: Blood pressure 174/89, heart rate 68, oxygen saturation 99% on room air. There is no significant jugular venous distention. Chest: Clear to auscultation. Cardiac: Reveals a regular rate and rhythm without appreciable murmur or gallop. There is no evidence of peripheral edema. Abdominal ultrasound/renal artery Doppler study reveals no evidence of renal artery stenosis. LABORATORY DATA: Includes sodium 135, potassium 4.2, chloride 100, carbon dioxide 24, BUN 20, creatinine 0.9, glucose 131. IMPRESSION: 1. Hypertensive urgency. Blood pressure improving with adjustments. 2. Nonspecific mild elevation in troponin probably related to hypertensive urgency. Lexiscan sestamibi study reveals no evidence of inducible myocardial ischemia. 3. Longstanding severe hypertension. 4. Obesity. RECOMMENDATIONS: 1. Continue current cardiovascular regimen unchanged, anticipating that his blood pressure will come down further over the next few days after recent changes. 2. It is reasonable for patient to be discharged today and follow up with me in 1 week as an outpatient to further adjust antihypertensive regimen. cc: Carlos Grewal MD
--- NOTE | 2018-08-23 05:28 | DISCHARGE SUMMARY ---
ADMISSION DATE: 08/07/2018 DISCHARGE DATE: 08/13/2018 FINAL DISCHARGE DIAGNOSES: 1. Uncontrolled hypertension. 2. Elevated troponin. 3. Morbid obesity. 4. Diabetes mellitus type 2. 5. Hypothyroidism. CONSULTATIONS: Cardiology consultation with Dr. Grewal. IMAGIN. Chest x-ray performed on August 07, 2018, which revealed borderline cardiomegaly. 2. Echocardiogram performed on August 09, 2018, that revealed an ejection fraction of 62%, severe left atrial enlargement, no pericardial effusion. 3. Myocardial perfusion scan performed on August 11, 2018, that revealed no evidence of myocardial ischemia. 4. Ultrasound duplex of the renal arteries that revealed no evidence of renal artery stenosis. However, the patient was noted to have bilaterally enlarged kidneys. HOSPITAL COURSE: Mr. Marques is a 63-year-old male with a history of multiple medical problems, who presented to the ER with a chief complaint of elevated blood pressure. On admission, the patient was noted to have a blood pressure of 226/130. Also, the patient was noted to have an elevated troponin of 0.13 with a CK-MB of 17. As a result of this finding, the patient was transferred to [facility] [place] for cardiology consultation. The patient was seen by the heel builder, and a chest x-ray was done that revealed cardiomegaly. This was then followed by an echocardiogram that revealed an ejection fraction of 62%. The patient's troponins were followed closely, and it was thought that the patient's elevated troponins were secondary to the hypertensive urgency that the patient was suffering from. The patient then had a myocardial perfusion scan done that did not reveal any myocardial ischemia. Multiple adjustments were made to the patient's antihypertensives by the heel builder. The patient was ultimately cleared for discharge home by the heel builder on August 13, 2018. DISCHARGE MEDICATIONS: 1. Norvasc 10 mg p.o. daily. 2. Aspirin 81 mg p.o. daily. 3. Hydrochlorothiazide 25 mg p.o. daily. 4. Cozaar 50 mg p.o. twice a day. 5. Coreg 25 mg p.o. twice a day. 6. Metformin 500 mg p.o. twice a day. 7. Aldactone 50 mg p.o. daily. 8. Synthroid 100 mcg p.o. daily. 9. Glipizide 5 mg p.o. twice a day. DISCHARGE DIET: 1800 ADA diet, low-sodium diet. ACTIVITY: As tolerated. FOLLOWUP INSTRUCTIONS: The patient has been advised to follow up with Dr. Grewal in clinic in 1 week. The patient will also need to follow up with his primary care physician in 1 week as well. cc: MD Karolyn Pereira
== END 2018-08-13 18:30 | disposition home or self-care (01) | DRG 305 ==
LOC: P.ED 16:35 → P.EDIPHOLD 16:36 → EDIPHOLD 16:36 → SUATTDRO 16:37 → P.EDIPHOLD 16:37 → ICU 08-08 13:46 → P.EDIPHOLD 08-08 14:32 → ICU 08-08 14:32 → 3S 08-10 14:46
PROVIDERS: ATTEND Internal Medicine
CPT/HCPCS: 71010; 71045; 78452; 80048; 80053; 80104; 80301; 80305; 81001; 82384; 82550; 82553; 82948; 83036; 83735; 83835; 83880; 83935; 84300; 84443; 84484; 85025; 85027; 85610; 85730; 93005; 93017; 93306; 93976; 96372; 96374; 96375; 96376; 99285; 99291; A9270; A9500; G0431; G0434; G0477; J0360; J1650; J2785; XXXXX